=== PATIENT | female | born 1975 | race Two or more races ===

== ENCOUNTER 2016-11-04 13:57 | Emergency (ER) | payer SELFPAY ==
[2016-11-04 14:14] VITALS: RESP 18; TEMP 98; O2SAT 96
[2016-11-04] MEDS ORDERED: HYDROmorphONE/DILAUDID 1 MG/ML SYR IVP ONE (14:35)
[2016-11-04] MEDS ORDERED: NS 1,000 ML IV ONE (14:35)
[2016-11-04] MEDS ORDERED: METOCLOPRAMIDE 10 MG/2 ML VIAL IVP ONE (14:35)
[2016-11-04] MEDS ORDERED: DEXAMETHASONE 10 MG/ML VIAL IVP ONE (14:35)
[2016-11-04] MEDS ORDERED: KETOROLAC 30 MG/1 ML SDV IVP ONE (14:35)
--- NOTE | 2016-11-04 14:40 | EDPHY ---
H & P Stated Complaint: c/o URI / Cough x 3 days - worse @ night - today CROSS Source: Patient Exam Limitations: No limitations - Personal History LMP (Females 10-55): IUD In Place Current Tetanus Diphtheria and Acellular Pertussis (TDAP): Unsure Tetanus Vaccine Date: Unsure of date - Medical/Surgical History Hx Asthma: No Hx Chronic Respiratory Disease: No Hx Diabetes: No Hx Cardiac Disease: No Hx Renal Disease: No Hx Cirrhosis: No Hx Alcoholism: No Other PMH: chronic back pain/ DVT / PE- 10yrs ago - Family History Significant Family History: No pertinent family hx - Social History Smoking Status: Former smoker Alcohol Use: Sober Time Seen by Provider: 11/04/16 14:30 HPI/ROS: CHIEF COMPLAINT: Headache HISTORY OF PRESENT ILLNESS: The patient is a 41-year-old female whose had a dry cough, sinus congestion and left-sided earache for the last 3 days and today is had a severe left-sided headache. She has migraines and states that this seems typical of a migraine. She also takes chronic opiates for wrist pain. She has not been febrile. No rashes. Slight nausea but no vomiting. No chest pain or shortness breath. No neck stiffness. REVIEW OF SYSTEMS: Constitutional: denies: chills, fever, recent illness, recent injury EENTM: See HPI Respiratory: See HPI Cardiac: denies: chest pain, irregular heart rate, lightheadedness, palpitations Gastrointestinal/Abdominal: denies: abdominal pain, diarrhea, nausea, vomiting, blood streaked stools Genitourinary: denies: dysuria, frequency, hematuria, pain Musculoskeletal: denies: joint pain, muscle pain Skin: denies: lesions, rash, jaundice, bruising Neurological: denies: headache, numbness, paresthesia, tingling, dizziness, weakness Hematologic/Lymphatic: denies: blood clots, easy bleeding, easy bruising Immunologic/allergic: denies: HIV/AIDS, transplant EXAM: GENERAL: Eyes closed, slightly lethargic well-nourished HEAD: Atraumatic, normocephalic. EYES: Pupils equal round and reactive to light, extraocular movements intact, sclera anicteric, conjunctiva are normal. ENT: TMs with bilateral effusions , nares mild congestion , oropharynx with erythema without exudates. Moist mucous membranes. NECK: Normal range of motion, supple without lymphadenopathy or JVD. LUNGS: Breath sounds clear to auscultation bilaterally and equal. No wheezes rales or rhonchi. HEART: Regular rate and rhythm without murmurs, rubs or gallops. ABDOMEN: Soft, nontender, normoactive bowel sounds. No guarding, no rebound. No masses appreciated. BACK: No CVA tenderness, no spinal tenderness, step-offs or deformities EXTREMITIES: Normal range of motion, no pitting or edema. No clubbing or cyanosis. NEUROLOGICAL: Cranial nerves II through XII grossly intact. Normal speech, normal gait. 5/5 strength, normal movement in all extremities, normal sensation PSYCH: Normal mood, normal affect. SKIN: Warm, dry, normal turgor, no visible rashes or lesions. (Paul Covington) Constitutional: Initial Vital Signs Temperature (C) 36.6 C 11/04/16 14:12 Heart Rate 78 11/04/16 14:12 Respiratory Rate 18 11/04/16 14:12 Blood Pressure 141/87 H 11/04/16 14:12 O2 Sat (%) 96 11/04/16 14:12 O2 Delivery Mode Room Air O2 (L/minute) 2 Allergies/Adverse Reactions: No Known Allergies Allergy (Unverified 11/04/16 15:22) Home Medications: Medication Instructions Recorded Meloxicam 11/04/16 oxyCODONE CR 11/04/16 Medical Decision Making - Diagnostics Imaging Results: Chest x-ray PA and lateral; the cardiac mediastinal silhouette is unremarkable. No evidence of infiltrate or pneumothorax. No acute cardiopulmonary disease process noted. Interpreted by me. (Debra Cm) ED Course/Re-evaluation: I took over care of this patient at 3:[address] Paul Covington. This patient is here for complaint of cough, chest pain associated with her cough only, sore throat, headache which she describes is gradual in onset, frontal and similar to her prior migraines since yesterday. Worsening symptoms this afternoon. She denies any significant neck pain. Dr. Covington has ordered 30 mg of IV Toradol, 10 mg of IV Reglan, 10 mg of IV Decadron and some IV hydromorphone for treatment of her headache and sore throat. She has been started on a L of IV normal saline. Her vital signs were reviewed by myself and are normal. On my examination, the patient does not have any photophobia. No nystagmus. Her neck is supple and nontender. No pain on flexion of her neck. Her reports that she took 2 oxycodone prior to coming to the hospital. A chest x-ray has been ordered to evaluate for pneumonia. 4:30 p.m., patient re-evaluated. She is doing much better. She states that her headache has completely resolved. She was up to the bathroom with a normal gait. She is asymptomatic. Repeat exam her lungs are clear on auscultation bilaterally. No photophobia. She has a supple neck with no pain on flexion of her neck. She is requesting discharge. I feel she is appropriate to go home with her . Strict emergency department return precautions were discussed with the 2 of them. Follow-up was reviewed. All of their questions were answered. She was discharged home in good condition. Her is driving. I feel that meningitis, encephalitis, subarachnoid hemorrhage, cavernous sinus thrombosis, sagittal sinus thrombosis, pneumonia, other serious bacterial infection are unlikely in this patient. (Debra Cm) - Data Points Laboratory Results: Laboratory Results 11/04/16 14:55 11/04/16 14:55 11/04/16 Unknown Group A Strep DNA NEGATIVE (NEGATIVE) Medications Given: Discontinued Medications Dexamethasone (Decadron Injection) 10 mg IVP EDNOW ONE Stop: 11/04/16 14:36 Last Admin: 11/04/16 15:15 Dose: 10 mg Hydromorphone HCl (Dilaudid) 1 mg IVP EDNOW ONE Stop: 11/04/16 14:36 Last Admin: 11/04/16 15:12 Dose: 1 mg Sodium Chloride (Ns) 1,000 mls @ 0 mls/hr IV ONCE ONE PRN Reason: Wide Open Stop: 11/04/16 14:36 Last Admin: 11/04/16 15:00 Dose: 1,000 mls Ketorolac Tromethamine (Toradol) 30 mg IVP EDNOW ONE Stop: 11/04/16 14:36 Last Admin: 11/04/16 15:10 Dose: 30 mg Metoclopramide HCl (Reglan Injection) 10 mg IVP EDNOW ONE Stop: 11/04/16 14:36 Last Admin: 11/04/16 15:17 Dose: 10 mg Departure - Departure Disposition: Home, Routine, Self-Care Clinical Impression: Viral syndrome, Bronchitis Headache Qualifiers: Headache type: unspecified Headache chronicity pattern: acute headache Intractability: not intractable Qualified Code(s): R51 - Headache Condition: Good Instructions: Acute Headache (ED), Viral Syndrome (ED) Additional Instructions: Read and follow provided instructions. Follow-up with your primary care physician in 1-2 days for re-evaluation. Take your pain medication as prescribed only. And only as needed. Return to the emergency department immediately for fever, worsening headache, difficulty breathing, worsening symptoms or other serious concerns. Referrals: SHALINI SINGLETARY,. [Primary Care Provider] - As per Instructions
[2016-11-04 15:01] LABS: % IMMATURE GRANULYOCYTES 0.3 % (0.0-1.1); ABSOLUTE IMMATURE GRANULOCYTES 0.03 10^3/uL (0.00-0.10); ADD DIFF? NO; ADD MORPH? NO; ADD SCAN? NO; ATYPICAL LYMPHOCYTE FLAG 0 (0-99); FRAGMENT RBC FLAG 0 (0-99); HEMATOCRIT 42.3 % (38.0-47.0); HEMOGLOBIN 14.6 g/dL (12.6-16.3); LEFT SHIFT FLG 0 (0-99); LIPEMIA HEMOLYSIS FLAG 90 (0-99); MEAN CELL HEMOGLOBIN 31.5 pg (27.9-34.1); MEAN CELL HEMOGLOBIN CONCENTR. 34.5 g/dL (32.4-36.7); MEAN CELL VOLUME 91.4 fL (81.5-99.8); MEAN PLATELET VOLUME 10.8 fL (8.7-11.7); PLATELET CLUMPS FLAG 0 (0-99); PLATELET COUNT 160 10^3/uL (150-400); RED BLOOD CELL COUNT 4.63 10^6/uL (4.18-5.33); RED CELL DISTRIBUTION WIDTH 13.9 % (11.5-15.2)
[2016-11-04 15:13] LABS: ANION GAP 14 mEq/L (8-16); CALCIUM 8.6 mg/dL (8.5-10.4); CARBON DIOXIDE 23 mEq/l (22-31); CHLORIDE 106 mEq/L (97-110); CREATININE 0.6 mg/dL (0.6-1.0); GLOMERULAR FILTRATION RATE > 60; GLUCOSE 81 mg/dL (70-100); POTASSIUM 3.1 mEq/L (3.5-5.2); SODIUM 143 mEq/L (134-144)
[2016-11-04 16:48] VITALS: BP 137/89; PULSE 76
== END 2016-11-04 16:53 | disposition home or self-care (01) ==
LOC: CED 13:57
DX: J40 Bronchitis, not specified as acute or chronic (principal); B34.9 Viral infection, unspecified; Z87.891 Personal history of nicotine dependence
CPT/HCPCS: 71020-PO; 80048-PO; 85025-PO; 87400-PO; 87880-PO; 96374; J1170; J1885; J2765